=== PATIENT | female | born 1980 | race Caucasian/White ===

== ENCOUNTER → 2023-06-28 | Outpatient (CLI) | payer BC | LOC: M WHC 07:37 | PROVIDERS: ATTEND Obstetrics & Gynecology | DX: Z12.31 Encounter for screening mammogram for malignant neoplasm of breast (principal) ==

== ENCOUNTER → 2024-10-06 | Outpatient (CLI) | payer BC | LOC: M WHC 09:44 | PROVIDERS: ATTEND Advanced Practice Midwife | DX: Z12.31 Encounter for screening mammogram for malignant neoplasm of breast (principal); R92.323 Mammographic fibroglandular density, bilateral breasts ==

== ENCOUNTER → 2024-10-06 | Outpatient (REF) | payer BC ==
[2024-10-09 14:12] LABS: HPV APTIMA Not Detected (Not Detected)
== END ==
LOC: M PLALAB 10:51
PROVIDERS: ATTEND Advanced Practice Midwife
DX: Z12.4 Encounter for screening for malignant neoplasm of cervix (principal)
CPT/HCPCS: 87624; G0123